=== PATIENT | male | born 1970 | race Caucasian/White ===

== ENCOUNTER 2021-12-29 05:38 | Day surgery (SDC) | payer MEDICAID ==
[~2021-12-29] VITALS: Ht 177.8 cm; Wt 109.0 kg
[2021-12-29] MEDS ORDERED: LIDOCAINE 4% 50 ML SOLUTION TP ONE (05:39)
[2021-12-29] MEDS ORDERED: LIDOCAINE 2% 5 ML JELLY TP ONE (05:39)
[2021-12-29] MEDS ORDERED: BENZOCAINE 20% 50 MCG/SPRAY 57 GM TP ONE (05:39)
[2021-12-29] MEDS ORDERED: SODIUM CHLORIDE 0.9% 1,000 ML ONE (06:15)
[2021-12-29] MEDS ORDERED: SODIUM CHLORIDE 0.9% 1,000 ML IV ONE (06:30)
[2021-12-29 06:56] LABS: COVID AG,FIA SOURCE NASAL SWAB
[2021-12-29] MEDS ORDERED: FentaNYL CITRATE PF 100 MCG/2 ML VIAL ONE (07:13)
[2021-12-29] MEDS ORDERED: MIDAZOLAM HCL 5 MG/ML VIAL ONE (07:14)
[2021-12-29] MEDS ORDERED: MethylPREDNISolone SOD SUCC 125 MG/2 ML VIAL IVP ONE (09:15)
[2021-12-29] MEDS ORDERED: MethylPREDNISolone SOD SUCC 125 MG/2 ML VIAL ONE (09:41)
[2021-12-29] MEDS ORDERED: OXYGEN THERAPY IH SCH (20:00)
== END 2021-12-29 13:20 | disposition home or self-care (01) ==
LOC: SURGERY 05:38
PROVIDERS: ATTEND Internal Medicine Critical Care Medicine
DX: J38.4 Edema of larynx (principal); B37.0 Candidal stomatitis; Z88.8 Allergy status to other drugs, medicaments and biological substances; Z79.899 Other long term (current) drug therapy; Z98.890 Other specified postprocedural states
CPT/HCPCS: 31623; 31624; 71045; 87015; 87070; 87101; 87206; 87220; 87426; 88112; 88184; 88185; 88312; C9803; J2250; J2930; J3010; J7030; Z7610